=== PATIENT | male | born 1975 | race Caucasian/White ===

== ENCOUNTER 2022-01-20 13:30 | Outpatient (CLI) | payer BC, SELFPAY ==
--- OUTSIDE RECORDS SUMMARY | 2022-01-20 13:33 | XMS_ITS ---
:1975 Author Care Team Providers Name Role Phone Liz Wilkinson Primary Care Provider Unavailable Allergies Code Code System Name Reaction Severity Status Onset NKDA ? Medications Name Status Start Date Stop Date ? ? clobetasol 0.05 % topical cream Active ? Not available omeprazole 40 mg capsule,delayed release Active ? Not available TAKE 1 CAPSULE BY MOUTH EVERY DAY BEFORE A MEAL FOR 14 DAYS Problems None recorded. Procedures None recorded. Results Lab Results Date Name Specimen Result Interpretation Description Value Range Status Address ? 12/18/2020 Rapid SARS CoV Nose (nasal ? Result positive ? ? [facility] 2 Ag, QL [place], passage) [facility] Respiratory Farib willa: Specimen [address] , [place] Past Encounters 12/18/2020 Covid-19 Liz Wilkinson PA: [address], [address], [place] [address], Ph. Social History None recorded. Vaccine List None recorded. Plan of Care Patient Instructions Discussed rapid covid results with elyssa ent and recommended quarantine per CDC guidelines. Patient to follow up with michael mcgill for further guidelines. Patient appears well, vitals stable and no immediate con cerns. Patient understands and agrees with treatment plan and instructions. No ryan tment as patient is not currently experiencing symptoms. If symptoms progr ess or worsen, patient should proceed to the emergency room immediately. All question s answered. Reminders Provider Appointments None recorded. ? ? Lab None recorded. ? ? Referral None recorded. ? ? Procedures None recorded. ? ? Surgeries None recorded. ? ? Imaging None recorded. ? ? Vitals Blood Pressure 124/82 mm[Hg]
--- OUTSIDE RECORDS SUMMARY | 2022-01-20 13:33 | XMS_ITS | Clinical Summary ---
:1975 Author Organization [employer] [employer] [facility] [place] [address] Care Team Providers Name Role Phone Pcp, No Primary Care Provider Unavailable Allergies Active Allergy Reactions Severity Noted Date Comments Azithromycin Vomiting 08/22/2011 Medications Medication Sig Dispensed Refills Start Date End Date Status fexofenadine (WOLFGANG) Take 1 tablet by 0 09/28/2018 Active 60 mg tablet mouth 2 times daily. ixekizumab (TALTZ 1 injection every 0 08/30/2019 Active AUTOINJECTOR) 80 mg/mL 4 weeks atInIndications: Psoriasis, High risk medication use clobetasol cream 0.05% 0 05/08/2020 Active (TEMOVATE) 0.05 % cream multivitamin chew Take by mouth once 0 05/24/2020 Active daily. Active Problems No known active problems Immunizations Name Administration Dates Next Due COVID-19 vaccine (Moderna 100mcg/0.5mL) MIGUEL VERMA 02/15/2021 Family History Medical History Relation Name Comments Good Health Mother Relation Name Status Comments Father Mother Alive Social History Tobacco Use Types Packs/Day Years Used Date Current Every Day Smoker Cigarettes 0.25 20 Smokeless Tobacco: Never Used Tobacco Cessation: Ready to Quit: No; Co unseling Given: Yes Comments: 4-5 cigs per day Alcohol Use Standard Drinks/Week Comments Yes 0 (1 standard drink = 0.6 oz pure alcoho l) Alcohol Habits Answer Date Recorded How often do you have a drink containing 4 or more times a w [place] 05/24/2020 alcohol? How many drinks containing alcohol do you have 1 or 2 05/24/2020 on a typical day when you are drinking? How often do you have six or more drinks on one Monthly 09/28/2018 occasion? Comment: Not asked Sex Assigned at Date Recorded Not on file Obstetrics History Last Filed Vital Signs Vital Sign Reading Time Taken Comments Blood Pressure 119/79 05/24/2020 8:35 AM [employer] Pulse 86 05/24/2020 8:35 AM [employer] Temperature 36.8 ??C (98.2 ??F) 09/28/2018 8:42 AM CDT Respiratory Rate - - Oxygen Saturation 97% 05/24/2020 8:35 AM [employer] Inhaled Oxygen Concentration - - Weight 74.5 kg (164 lb 3.2 oz) 05/24/2020 8:35 AM [employer]IST Height 177 cm (5' 9.69) 05/24/2020 8:35 AM [employer] Body Mass Index 23.77 05/24/2020 8:35 AM [employer] Plan of Treatment Upcoming Encounters Date Type Specialty Care Team Description 01/21/2022 Office Visit [facility] [address] [id number] (Wo rk) Health Maintenance Due Date Last Done Comments Pneumococcal series for age 19-64 (1 1982 - PCV) Tdap 10/18/1987 Hepatitis C screening for age 18-79 1994 Tetanus booster 1996 BMI (ht and wt on same day) for age 0205/24/2021 05/24/2020, 09/28/2018 18+ Depression screening for age 12+ 05/25/2021 05/25/2020, 07/2020, 09/28/2018 Colonoscopy through age 75 2021 Influenza for age 9-49 12/19/2021 Lipids for age 45-75 05/24/2025 05/24/2020 COVID-19 vaccine series Completed 02/15/2021, 08/08/2020, 07/11/2020 Results Not on filefrom Last 3 Months Insurance Payer Benefit Plan / Subscriber ID Effective Dates Phone Addre ss Type Group [employer] [place] [id number] 2020-Present [id number] [employer] [phone] Care Teams Director Process Engineering Relationship Specialty Start Date End Date Pcp, No PCP - General 09/23/18 .
[2022-01-20 22:28] LABS: Chloride* 100 mmol/L (96-114); Potassium* 4.5 mmol/L (3.6-5.1); Sodium* 137 mmol/L (135-149)
[2022-01-20 22:29] LABS: Aspartate Amino Transferase* 70 U/L (12-35); Carbon Dioxide* 27 mmol/L (20-32); Estimated Glomerular Filt Rate 95 ml/min
[2022-01-20 22:30] LABS: Alanine Aminotransferase* 43 U/L (4-50); Alkaline Phosphatase* 75 U/L (40-150); Blood Urea Nitrogen* 15 mg/dL (5-24); Calcium* 10.3 mg/dL (8.4-10.6); Glucose* 121 mg/dL (60-115); Lipase* 301 U/L (23-300); Total Protein* 8.2 g/dL (6.0-8.3)
== END 2022-01-20 13:31 | disposition home or self-care (01) ==
PROVIDERS: Visit Provider Registered Nurse
DX: R10.9 Unspecified abdominal pain (principal)
CPT/HCPCS: 80053; 83690